=== PATIENT | female | born 1970 | race Caucasian/White ===

== ENCOUNTER 2024-06-01 09:37 | Day surgery (SDC) | payer OTHER ==
[2012-02-10 00:01] VITALS: BP 100/72
[2024-06-01] MEDS ORDERED: methylPREDNISolone acetate IM ONE (09:38)
[2024-06-01] MEDS ORDERED: BUPIVACAINE 0.5% VIAL IJ ONE (09:38)
[2024-06-01] MEDS ORDERED: LIDOCAINE HCL 1% 50 MG/5 ML VL IJ ONE (09:38)
[2024-06-01] MEDS ORDERED: LIDOCAINE HCL 2% 100 MG/5 ML IJ ONE (09:38)
--- NOTE | 2024-06-01 13:22 | XRAY ---
Indication: Left shoulder and subacromial bursa injection. Intraoperative fluoroscopy provided for 32 seconds. 3 digital spot image submitted for interpretation demonstrates needle tip projecting over left glenohumeral joint superiorly. Second needle tip subacromial. Small amount of contrast injected for needle tip placement. Correlate with intraoperative findings/report.
--- NOTE | 2024-06-01 14:52 | XRAY ---
32 seconds of fluoroscopy was used in surgery for a left intra-articular shoulder, subacromial bursa, and acromioclavicular joint injection.
== END 2024-06-01 12:25 | disposition home or self-care (01) ==
LOC: SDC-PAIN 09:37
PROVIDERS: ATTEND Psychiatry & Neurology Pain Medicine
DX: M19.012 Primary osteoarthritis, left shoulder (principal); M75.52 Bursitis of left shoulder
CPT/HCPCS: 20600; 20610; 73030; 77002; J1010; Q9966